=== PATIENT | female | born 1970 | race Two or more races ===

== ENCOUNTER 2016-09-13 09:39 | Emergency (ER) | payer MEDICAID ==
[~2016-09-13] VITALS: Ht 160 cm; Wt 98.4 kg
[2016-09-13] MEDS ORDERED: SODIUM CHLORIDE 0.9% 1,000 ML IV ONE (11:06)
[2016-09-13] MEDS ORDERED: FUROSEMIDE 20 MG TAB PO ONE (11:15)
[2016-09-13] MEDS ORDERED: DIAZEPAM 5 MG/ML 2ML SYRG IV ONE (11:15)
[2016-09-13] MEDS ORDERED: MECLIZINE HCL 25 MG TAB PO ONE (11:15)
[2016-09-13 11:41] LABS: Basophils # (auto) 0 uL; Basophils % (auto) 0.4 % (0.0-2.0); Eosinophils # (auto) 0.1 uL; Eosinophils % (auto) 1.1 % (0.0-7.0); Hematocrit 43.4 % (36.0-46.0); Hemoglobin 14.2 g/dL (12.2-16.2); Lymphocytes # (auto) 1.4 uL; Lymphocytes % (auto) 22.1 % (10.0-50.0); Mean Corpuscular Hemoglobin 27.8 pg (28.0-32.0); Mean Corpuscular Hgb Conc. 32.7 g/dL (32.0-36.0); Mean Corpuscular Volume 84.9 fL (80.0-100.0); Mean Platelet Volume 7.9 fL (7.4-10.4); Monocytes # (auto) 0.3 uL; Monocytes % (auto) 4.2 % (0.0-12.0); Neutrophils # (auto) 4.4 uL; Neutrophils % (auto) 72.2 % (37.0-80.0); Platelet Count (auto) 267 10^3/uL (140-450); Red Cell Distribution Width 13.4 % (11.6-16.0); White Blood Cell 6.1 10^3/uL (4.4-10.8)
[2016-09-13 12:04] LABS: BUN/Creatinine Ratio 14.9; Calcium 9.1 mg/dL (8.5-10.1); Magnesium 2.6 mg/dL (1.6-2.6); Potassium 3.9 mmol/L (3.5-5.1)
[2016-09-13 13:45] LABS: Urine Bilirubin Negative (Negative); Urine Blood Negative /uL (Negative); Urine Color Colorless (Yellow); Urine Glucose Normal (Normal); Urine Ketone Negative (Negative); Urine Nitrite Negative (Negative); Urine RBC 1 /hpf (0 - 4); Urine Squamous Epithelial Cell FEW /hpf (<5); Urine Urobilinogen Normal (Negative)
[2016-09-13 14:52] VITALS: BP 118/78
== END 2016-09-13 15:45 | disposition home or self-care (01) ==
LOC: ER 09:39
DX: R42 Dizziness and giddiness (principal); H61.23 Impacted cerumen, bilateral; J45.909 Unspecified asthma, uncomplicated; R07.9 Chest pain, unspecified
CPT/HCPCS: 36415; 71020; 80048; 81001; 83735; 85025; 93005; 96361; 96374; 99285; J3360; J7030; J8597

== ENCOUNTER 2019-05-20 22:49 | Emergency (ER) | payer MEDICAID ==
[~2019-05-20] VITALS: Ht 160 cm; Wt 99.8 kg
[2019-05-20 23:09] VITALS: BP 143/86
[2019-05-21] MEDS ORDERED: methylPREDNISolone SOD SUCC 125 MG/2 ML VL IM ONE (00:15)
[2019-05-21] MEDS ORDERED: IPRATROPIUM BROM 0.5 MG/2.5ML INH SOL NEB ONE (00:15)
[2019-05-21] MEDS ORDERED: ALBUTEROL SULF 2.5 MG/0.5ML(0.5%) NEB SOLN NEB ONE (00:15)
== END 2019-05-21 00:52 | disposition home or self-care (01) ==
LOC: ER 22:53
DX: J45.901 Unspecified asthma with (acute) exacerbation (principal); T78.40XA Allergy, unspecified, initial encounter; L29.9 Pruritus, unspecified; I10 Essential (primary) hypertension; Z90.49 Acquired absence of other specified parts of digestive tract; Z90.710 Acquired absence of both cervix and uterus; Z87.442 Personal history of urinary calculi; X58.XXXA Exposure to other specified factors, initial encounter
CPT/HCPCS: 94640; 96372; 99283; J2930; J7611; J7644

== ENCOUNTER 2019-07-30 02:40 | Emergency (ER) | payer MEDICAID ==
[~2019-07-30] VITALS: Ht 160 cm; Wt 113.4 kg
[2019-07-30 02:56] VITALS: BP 140/84
[2019-07-30] MEDS ORDERED: ACETAMINOPHEN/CODEINE#3 (300/30mg) TAB PO ONE (04:00)
== END 2019-07-30 04:52 | disposition home or self-care (01) ==
LOC: ER 02:47
DX: G56.03 Carpal tunnel syndrome, bilateral upper limbs (principal); J45.909 Unspecified asthma, uncomplicated; I10 Essential (primary) hypertension; Z90.49 Acquired absence of other specified parts of digestive tract; Z90.710 Acquired absence of both cervix and uterus; Z87.442 Personal history of urinary calculi

== ENCOUNTER 2020-02-12 16:47 | Emergency (ER) | payer MEDICAID ==
[~2020-02-12] VITALS: Ht 160 cm; Wt 99.8 kg
[2020-02-12 17:45] LABS: Basophils # (auto) 0 10 ^3/uL (0-0.2); Basophils % (auto) 0.7 % (0.0-2.0); Eosinophils # (auto) 0.2 10 ^3/uL (0-0.8); Eosinophils % (auto) 2.3 % (0.0-7.0); Hematocrit 42.6 % (36.0-46.0); Hemoglobin 14.6 g/dL (12.2-16.2); Lymphocytes # (auto) 2.3 10 ^3/uL (0.4-5.4); Lymphocytes % (auto) 30.6 % (10.0-50.0); Mean Corpuscular Hemoglobin 29.1 pg (28.0-32.0); Mean Corpuscular Hgb Conc. 34.2 g/dL (32.0-36.0); Mean Corpuscular Volume 84.9 fL (80.0-100.0); Monocytes # (auto) 0.6 10 ^3/uL (0-1.3); Monocytes % (auto) 7.9 % (0.0-12.0); Neutrophils # (auto) 4.3 10 ^3/uL (1.6-8.6); Neutrophils % (auto) 58.5 % (37.0-80.0); Nucleated Red Blood Cells % 0.4 %; Platelet Count (auto) 311 10^3/uL (140-450); Red Blood Cells 5.02 10^6/uL (4.0-5.20); Red Cell Distribution Width 13.3 % (11.8-14.3); White Blood Cell 7.4 10^3/uL (4.4-10.8)
[2020-02-12 17:50] LABS: Alanine Aminotransferase 46 U/L (13-56); Albumin 3.7 g/dL (3.4-5.0); Anion Gap 6 (5-15); Aspartate Aminotransferase 29 U/L (15-37); BUN/Creatinine Ratio 16.1; Blood Urea Nitrogen 20 mg/dL (7-18); Calcium 8.9 mg/dL (8.5-10.1); Carbon Dioxide 28 mmol/L (21-32); Chloride 104 mmol/L (98-107); GFR African American 59 mL/min; GFR Non-African American 49 mL/min; Glucose 107 mg/dL (74-106); Magnesium 2.4 mg/dL (1.6-2.6); Potassium 3.8 mmol/L (3.5-5.1); Sodium 138 mmol/L (136-145)
[2020-02-12 17:55] LABS: Alkaline Phosphatase 90 U/L (45-117); Bilirubin, Total 0.3 mg/dL (0.2-1.0); Total Protein 8.2 g/dL (6.4-8.2)
[2020-02-12] MEDS ORDERED: ASPirin 325 MG TAB PO ONE (21:45)
[2020-02-12 22:32] LABS: Urine Bacteria FEW /hpf (None Seen); Urine Blood 1+ /uL (Negative); Urine Mucus FEW (None Seen); Urine Specific Gravity 1.033 (1.001-1.035); Urine WBC 3 /hpf (0 - 5)
[2020-02-12 22:41] LABS: Alcohol, Urine < 3.0 mg/dL (0-10); Amphetamine Screen, Urine NEGATIVE (NEGATIVE); Barbiturate Scree,Urine NEGATIVE (NEGATIVE); Benzodiazephine Screen, Urine NEGATIVE (NEGATIVE); Cannabinoid Screen, Urine NEGATIVE (NEGATIVE); Cocaine Screen, Urine NEGATIVE (NEGATIVE); Opiate Scree,Urine NEGATIVE (NEGATIVE); Phencyclidine Screen, Urine NEGATIVE (NEGATIVE)
[2020-02-12 23:47] VITALS: BP 151/79
[2020-02-13] MEDS ORDERED: FAMOTIDINE 20 MG TAB PO ONE (00:15)
[2020-02-13] MEDS ORDERED: hydrOXYzine 25 MG TAB or CAP PO ONE (00:15)
== END 2020-02-13 02:05 | disposition home or self-care (01) ==
LOC: ER 16:47
DX: F41.9 Anxiety disorder, unspecified (principal); K29.70 Gastritis, unspecified, without bleeding; R07.89 Other chest pain; M79.602 Pain in left arm; J45.909 Unspecified asthma, uncomplicated; Z90.49 Acquired absence of other specified parts of digestive tract; Z90.710 Acquired absence of both cervix and uterus
CPT/HCPCS: 36415; 71046; 80053; 80307; 81001; 83735; 84443; 84484; 85025; 93005

== ENCOUNTER 2021-02-20 13:09 | Emergency (ER) | payer MEDICAID ==
[~2021-02-20] VITALS: Ht 160 cm; Wt 93.0 kg
[2021-02-20 14:35] LABS: Alanine Aminotransferase 24 U/L (13-56); Albumin 3.6 g/dL (3.4-5.0); Anion Gap 6 (5-15); Aspartate Aminotransferase 15 U/L (15-37); BUN/Creatinine Ratio 13.5; Blood Urea Nitrogen 15 mg/dL (7-18); Calcium 8.1 mg/dL (8.5-10.1); Carbon Dioxide 29 mmol/L (21-32); Chloride 105 mmol/L (98-107); GFR African American 67 mL/min; GFR Non-African American 55 mL/min; Glucose 111 mg/dL (74-106); Magnesium 2.2 mg/dL (1.6-2.6); Potassium 3.5 mmol/L (3.5-5.1); Sodium 140 mmol/L (136-145)
[2021-02-20 14:39] LABS: Alkaline Phosphatase 81 U/L (45-117); Bilirubin, Total 0.3 mg/dL (0.2-1.0); Total Protein 7.4 g/dL (6.4-8.2)
[2021-02-20 14:47] LABS: Basophils # (auto) 0 10 ^3/uL (0-0.2); Basophils % (auto) 0.5 % (0.0-2.0); Eosinophils # (auto) 0.1 10 ^3/uL (0-0.8); Eosinophils % (auto) 1.1 % (0.0-7.0); Hemoglobin 14.2 g/dL (12.2-16.2); Lymphocytes # (auto) 1.8 10 ^3/uL (0.4-5.4); Lymphocytes % (auto) 24.9 % (10.0-50.0); Mean Corpuscular Hemoglobin 29.2 pg (28.0-32.0); Mean Corpuscular Hgb Conc. 34.7 g/dL (32.0-36.0); Mean Corpuscular Volume 84.2 fL (80.0-100.0); Monocytes # (auto) 0.4 10 ^3/uL (0-1.3); Neutrophils # (auto) 5.1 10 ^3/uL (1.6-8.6); Neutrophils % (auto) 68.5 % (37.0-80.0); Nucleated Red Blood Cells % 0.3 %; Red Blood Cells 4.87 10^6/uL (4.0-5.20); Red Cell Distribution Width 13.3 % (11.8-14.3); White Blood Cell 7.4 10^3/uL (4.4-10.8)
[2021-02-20 15:25] VITALS: BP 141/83
== END 2021-02-20 15:47 | disposition home or self-care (01) ==
LOC: ER 13:09
DX: R42 Dizziness and giddiness (principal); R06.02 Shortness of breath; R20.2 Paresthesia of skin; J45.909 Unspecified asthma, uncomplicated; Z90.49 Acquired absence of other specified parts of digestive tract; Z90.710 Acquired absence of both cervix and uterus
CPT/HCPCS: 36415; 71045; 80053; 83735; 84484; 85025; 85379; 93005; 93971

== ENCOUNTER 2023-02-18 08:12 | Emergency (ER) | payer MEDICAID ==
[~2023-02-18] VITALS: Ht 160 cm; Wt 93.9 kg
[2023-02-18 08:50] VITALS: BP 138/83; PULSE 75; RESP 18; TEMP 97.3; O2SAT 96
[2023-02-18] MEDS ORDERED: CETI10CA PO (09:04)
[2023-02-18] MEDS ORDERED: ERY05OO OP (09:04)
== END 2023-02-18 09:22 | disposition home or self-care (01) ==
LOC: ER 08:12
DX: H10.33 Unspecified acute conjunctivitis, bilateral (principal)

== ENCOUNTER 2024-03-16 10:46 | Inpatient (IN) | payer MEDICAID ==
[~2024-03-16] VITALS: Ht 160 cm; Wt 101.6 kg
[~2024-03-16 10:46] MED LIST: CETI10CA PO; ERY05OO OP
[2024-03-16] MEDS: ASPirin 81 mg TAB PO ONE (11:06)
[2024-03-16 11:12] LABS: Basophils # (auto) 0.1 10 ^3/uL (0-0.2); Basophils % (auto) 0.9 % (0.0-2.0); Eosinophils # (auto) 0.2 10 ^3/uL (0-0.8); Eosinophils % (auto) 2.5 % (0.0-7.0); Hematocrit 43.3 % (36.0-46.0); Lymphocytes # (auto) 2.2 10 ^3/uL (0.4-5.4); Lymphocytes % (auto) 33.8 % (10.0-50.0); Mean Corpuscular Hemoglobin 29.3 pg (28.0-32.0); Mean Corpuscular Hgb Conc. 34.6 g/dL (32.0-36.0); Mean Corpuscular Volume 84.7 fL (80.0-100.0); Monocytes # (auto) 0.5 10 ^3/uL (0-1.3); Monocytes % (auto) 7.1 % (0.0-12.0); Neutrophils # (auto) 3.7 10 ^3/uL (1.6-8.6); Neutrophils % (auto) 55.7 % (37.0-80.0); Platelet Count (auto) 258 10^3/uL (140-450); Red Blood Cells 5.11 10^6/uL (4.0-5.20); Red Cell Distribution Width 13.1 % (11.8-14.3); White Blood Cell 6.5 10^3/uL (4.4-10.8)
[2024-03-16 11:31] LABS: Alanine Aminotransferase 25 U/L (7-40); Albumin 4.6 g/dL (3.2-4.8); Alkaline Phosphatase 90 U/L (46-116); Anion Gap 4 (5-15); Aspartate Aminotransferase 19 U/L (13-40); BUN/Creatinine Ratio 11.3 (10.0-20.0); Bilirubin, Total 0.5 mg/dL (0.2-1.0); Blood Urea Nitrogen 11 mg/dL (9-23); Calcium 9.7 mg/dL (8.7-10.4); Carbon Dioxide 29 mmol/L (20-30); Chloride 105 mmol/L (98-107); Glucose 101 mg/dL (74-106); Potassium 3.9 mmol/L (3.5-5.1); Sodium 138 mmol/L (136-145); Total Protein 7.6 g/dL (5.7-8.2)
[2024-03-16 14:32] VITALS: PULSE 80; RESP 16; O2SAT 97
[2024-03-16] MEDS ORDERED: NITROGLYCERIN 0.4 MG SL TAB SL PRN (15:00)
[2024-03-16] MEDS ORDERED: MORPHINE SULFATE INJ 2 MG/ml SYRG IV PRN (15:00)
[2024-03-16] MEDS ORDERED: ACETAMINOPHEN 325 MG TAB PO PRN (15:00)
[2024-03-16 15:37] LABS: Triglycerides 262 mg/dL (< 150)
[2024-03-16 15:38] LABS: LDL Cholesterol 112 mg/dL (< 100)
[2024-03-16 15:39] LABS: Cholesterol 198 mg/dL (< 200); HDL Cholesterol 45 mg/dL (40-59)
[2024-03-16] MEDS ORDERED: MECLIZINE HCL 25 MG TAB PO PRN (16:45)
[2024-03-16] MEDS: MECLIZINE HCL 25 MG TAB PO ONE (17:03)
[2024-03-16 22:38] VITALS: PULSE 52; RESP 18; O2SAT 96
[2024-03-17] MEDS ORDERED: NAPR220C PO (00:34)
[2024-03-17] MEDS ORDERED: ESCI10TA PO (00:34)
[2024-03-17 01:00] VITALS: BP 142/70; PULSE 51; RESP 17; TEMP 97.7; O2SAT 93
[2024-03-17 05:00] VITALS: BP 148/85; PULSE 63; RESP 18; TEMP 98; O2SAT 97
[2024-03-17 05:51] LABS: Basophils # (auto) 0.1 10 ^3/uL (0-0.2); Basophils % (auto) 0.7 % (0.0-2.0); Eosinophils # (auto) 0.2 10 ^3/uL (0-0.8); Eosinophils % (auto) 3.5 % (0.0-7.0); Hematocrit 41.4 % (36.0-46.0); Hemoglobin 14.5 g/dL (12.2-16.2); Lymphocytes % (auto) 27.9 % (10.0-50.0); Mean Corpuscular Hemoglobin 29.4 pg (28.0-32.0); Mean Corpuscular Hgb Conc. 34.9 g/dL (32.0-36.0); Mean Corpuscular Volume 84.3 fL (80.0-100.0); Monocytes # (auto) 0.5 10 ^3/uL (0-1.3); Monocytes % (auto) 7.2 % (0.0-12.0); Neutrophils # (auto) 4.2 10 ^3/uL (1.6-8.6); Neutrophils % (auto) 60.7 % (37.0-80.0); Nucleated Red Blood Cells % 0.3 %; Platelet Count (auto) 239 10^3/uL (140-450); Red Blood Cells 4.91 10^6/uL (4.0-5.20); Red Cell Distribution Width 13.2 % (11.8-14.3)
[2024-03-17 05:52] LABS: Alanine Aminotransferase 24 U/L (7-40); Albumin 4.1 g/dL (3.2-4.8); Alkaline Phosphatase 80 U/L (46-116); Anion Gap 4 (5-15); Aspartate Aminotransferase 16 U/L (13-40); BUN/Creatinine Ratio 15.9 (10.0-20.0); Bilirubin, Total 0.5 mg/dL (0.2-1.0); Blood Urea Nitrogen 17 mg/dL (9-23); Calcium 9.5 mg/dL (8.7-10.4); Carbon Dioxide 30 mmol/L (20-30); Chloride 106 mmol/L (98-107); Glucose 100 mg/dL (74-106); Potassium 4.3 mmol/L (3.5-5.1); Sodium 140 mmol/L (136-145); Total Protein 6.9 g/dL (5.7-8.2)
[2024-03-17 08:00] VITALS: PULSE 53; PULSE 59; RESP 17; O2SAT 95
[2024-03-17 08:27] LABS: Hepatitis B Surface Antigen Negative (Negative)
[2024-03-17 08:49] VITALS: BP 138/75; PULSE 59; RESP 17; TEMP 98; O2SAT 95
[2024-03-17 08:49] LABS: Hepatitis C Antibody Negative (Negative)
[2024-03-17] MEDS: KETOROLAC TROMETH 30 MG/ML 1ML VIAL IV ONE (10:00)
[2024-03-17] MEDS ORDERED: ENOXAPARIN SOD 40 MG/0.4 ML SYRINGE SC SCH (10:00)
[2024-03-17] MEDS: PANTOPRAZOLE 40 MG TAB PO ONE (10:00)
[2024-03-17] MEDS: ASPirin 81 mg TAB PO SCH (10:04)
[2024-03-17] MEDS: LOSARTAN POTASSIUM 50 MG TAB PO SCH (10:05)
[2024-03-17] MEDS ORDERED: HYDR25TA5 PO (12:46)
[2024-03-17] MEDS ORDERED: LOSA-534 PO (12:46)
[2024-03-17 13:37] LABS: Urine Bacteria FEW /hpf (None Seen); Urine Blood 1+ /uL (Negative); Urine Clarity Clear (Clear); Urine Protein, UAD Negative (Negative); Urine Specific Gravity 1.008 (1.001-1.035); Urine Urobilinogen Normal (Negative); Urine WBC <1 /hpf (0 - 5)
[2024-03-17 13:41] LABS: Amphetamine Screen, Urine Neg (NEGATIVE); Barbiturate Scree,Urine Neg (NEGATIVE); Benzodiazephine Screen, Urine Neg (NEGATIVE); Cocaine Screen, Urine Neg (NEGATIVE)
[2024-03-17 13:42] LABS: Cannabinoid Screen, Urine Neg (NEGATIVE); Opiate Scree,Urine Neg (NEGATIVE); Phencyclidine Screen, Urine Neg (NEGATIVE)
[2024-03-17 13:43] VITALS: BP 129/72; PULSE 65; RESP 17; TEMP 98.1; O2SAT 95
[2024-03-17 13:47] LABS: Urine Color Light-Yellow (Yellow)
[2024-03-17] MEDS ORDERED: ATORVASTATIN 20 MG TAB PO SCH (22:00)
[2024-03-18] MEDS ORDERED: PANTOPRAZOLE 40 MG TAB PO SCH (06:00)
== END 2024-03-17 15:00 | disposition home or self-care (01) | DRG 203 ==
LOC: ER 10:46 → TELE 14:54 → TELE-CENTR 22:38 → CENTRAL 03-17 11:11
PROVIDERS: ADMIT Internal Medicine; ATTEND Internal Medicine
DX: M94.0 Chondrocostal junction syndrome [Tietze] (principal); E66.01 Morbid (severe) obesity due to excess calories; E78.00 Pure hypercholesterolemia, unspecified; J45.909 Unspecified asthma, uncomplicated; I10 Essential (primary) hypertension; F41.9 Anxiety disorder, unspecified; Z90.710 Acquired absence of both cervix and uterus; Z90.49 Acquired absence of other specified parts of digestive tract; Z87.442 Personal history of urinary calculi; Z68.39 Body mass index [BMI] 39.0-39.9, adult
CPT/HCPCS: 36415; 71046; 80053; 80061; 80307; 81001; 83036; 84443; 84484; 85025; 85379; 86803; 87340; 93005; 93306; G0378

== ENCOUNTER 2024-12-25 15:23 | Emergency (ER) | payer MEDICAID ==
[~2024-12-25] VITALS: Ht 160 cm; Wt 99.6 kg
[~2024-12-25 15:23] MED LIST changes: -CETI10CA PO; -ERY05OO OP; +ESCI10TA PO; +HYDR25TA5 PO; +LOSA-534 PO; +NAPR220C PO
[2024-12-25 16:19] VITALS: BP 140/86; PULSE 76; RESP 14; TEMP 98; O2SAT 98
--- NOTE | 2024-12-25 16:21 | ED.PDOC ---
HPI Allergic reaction HPI Comments A 54 YEAR OLD FEMALE PRESENTS TO THE ED WITH CHIEF COMPLAINT OF ALLERGIC REACTION. PATIENT REPORTS THAT SHE HAS BEEN EXPERIENCING ALLERGIES WITH ASSOCIATED WATERY EYES, RUNNY NOSE, ITCHY THROAT, AND CHEST/NECK RASH FOR THE PAST MONTH. PATIENT RELAYS THAT SHE HAS FOUND NO RELIEF WITH OTC ALLERGY MEDICATION AND MEDICATION HER PCP PRESCRIBED. PATIENT NOTES DIFFICULTY BREATHING IN THE NIGHT. PATIENT DENIES ANY COUGH, HEADACHE, THROAT SWELLING, CHEST PAIN, OR DIZZINESS. NO FURTHER COMPLAINTS OR SYMPTOMS. Chief Complaint: Allergic Reaction Time Seen by MD: 16:05 Primary Care Provider: ISAIAH Reviewed Notes: Nurses Notes, Medications, Allergies Allergies: Coded Allergies: NO KNOWN ALLERGIES (Unverified , 02/09/18) Home Meds Active Scripts Triamcinolone Acetonide (Triamcinolone Acetonide) 0.1 % Oin, 1 APPLIC TOP BID, #80 GRAMS Prov:ROXANE VILLANUEVA 12/25/24 Methylprednisolone (Medrol Dosepak) 4 Mg Rajesh, 4 MG PO UD, #21 TAB UAD Prov:ROXANE VILLANUEVA 12/25/24 Hydroxyzine Pamoate (Vistaril) 25 Mg Cap, 1 CAP PO TID, #90 CAP 1 Refill Prov:ROXANE VILLANUEVA 12/25/24 Hctz (Hydrochlorothiazide) 25 Mg Tab, 25 MG PO QAM for 30 Days, #30 TAB 3 Refills Prov:ELIZABETH SANDOVAL MD 03/17/24 Losartan Potassium (Losartan Potassium) 50 Mg Tab, 50 MG PO DAILY for 30 Days, #30 TAB 3 Refills Prov:ELIZABETH SANDOVAL MD 03/17/24 Reported Medications Naproxen Sodium (Aleve) 220 Mg Cap, 220 MG PO, CAP 03/17/24 Escitalopram Oxalate (Lexapro) 10 Mg Tab, 1 TAB PO DAILY, #90 TAB 3 Refills 03/17/24 Information Source: Patient Mode of Arrival: Ambulatory Severity: Mild, Moderate Rash: Mild, Moderate SOB: None Difficulty swallowing: None Pruritus: Moderate Timing: Months Duration: Since onset, Intermittent, Days Prehospital treatment: None Location: Chest, Face, Neck Exposed to: Unknown Developed: Pruritus, Rash History of: Prior Similar Episodes Modyifying Factors: Not Used Associated Sign and Symptoms: None Past Medical History PAST MEDICAL HISTORY: Asthma, HTN, Kidney Stones Surgical History: Appendectomy, Cholecystectomy, , Hysterectomy 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 Pertinent CROCODILE FARMER History Family History Family History: Reviewed,noncontributory to illness, No family hx of Cancer, No family hx of DM, No family hx of Heart lashonda, No family hx of HTN, No family hx ofKidney lashonda, No family hx of Liver lashonda, No family hx of Lung lashonda, No family hx of Stroke Social History Smoker: Non-Smoker Alcohol: Denies ETOH Use Drugs: Denies Drug Use Lives In: Home Constitutional: denies: chills, diaphoresis, fatigue, fever, malaise, sweats, weakness, others EENTM: reports: nasal discharge, throat pain, others (WATERY EYES); denies: blurred vision, double vision, ear bleeding, ear discharge, ear drainage, ear pain, ear ringing, eye pain, eye redness, hearing loss, mouth pain, mouth swelling, nose bleeding, nose congestion, nose pain, photophobia, tearing, throat swelling, voice changes Respiratory: reports: shortness of breath (DUE TO ASTHMA ); denies: cough, hemoptysis, orthopnea, SOB at rest, SOB with excertion, stridor, wheezing, others Cardiovascular: denies: chest pain, dizzy spells, diaphoresis, Dyspnea on exertion, edema, irregular heart beat, left arm pain, lightheadedness, palpitations, PND, syncope, others Gastrointestinal: denies: abdomen distended, abdominal pain, blood streaked bowels, constipated, diarrhea, dysphagia, difficulty swallowing, hematemesis, melena, nausea, poor appetite, poor fluid intake, rectal bleeding, rectal pain, vomiting, others Genitourinary: denies: abnormal vagina bleeding, burning, dyspareunia, dysuria, flank pain, frequency, hematuria, incontinence, pain, , vagina disc harge, urgency, others Neurological: denies: dizziness, fainting, headache, left sided numbness, left sided weakness, numbness, paresthesia, pre-existing deficit, right sided numbness, right sided weakness, seizure, speech problems, tingling, tremors, weakness, others Musculoskeletal: denies: back pain, gout, joint pain, joint swelling, muscle pain, muscle stiffness, neck pain, others Integumetry: reports: rash; denies: bruises, change in color, change in hair/nails, dryness, laceration, lesions, lumps, wounds, others Allergic/Immunocompromised: reports: Hives, Itching; denies: Difficulty Healing, Frequent Infections, others Hematologic/Lymphatic: denies: anemia, blood clots, easy bleeding, easy bruising, swollen glands, others Endocrine: denies: excessive hunger, excessive sweating, excessive thirst, excessive urination, flushing, intolerance to cold, intolerance to heat, unexplained weight gain, unexplained weight loss, others Psychiatric: denies: anxiety, bipolar disorder, depression, hopeless, panic disorder, schizophrenia, sleepless, suicidal, others All Other Systems: Reviewed and Negative Physical Exam General Appearance: No Apparent Distress, Obese HEENT: Normal ENT Inspection, PERRL/EOMI, Pharynx Normal, TMs Normal Neck: Full Range of Motion, Non-Tender, Normal, Normal Inspection Respiratory: Chest Non-Tender, Lungs Clear, No Accessory Muscle Use, No Respiratory Distress, Normal Breath Sounds Cardiovascular: No Edema, No JVD, No Murmur, No Gallop, Normal Peripheral Pulses, Regular Rate/Rhythm Breast Exam: Deferred Gastrointestinal: No Organomegaly, Non Tender, No Pulsatile Mass, Normal Bowel Sounds, Soft Genitalia: Deferred Pelvic: Deferred Rectal: Deferred Extremities: No calf tenderness, Normal capillary refill, Normal inspection, Normal range of motion, Non-tender, No pedal edema Musculoskeletal : Apperance: Normal Neurologic: Alert, communication skills instructor II-XII nml as Tested, No Motor Deficits, Normal Affect, Normal Mood, No Sensory Deficits Cerebellar Function: Normal Reflexes: Normal Skin: Dry, Normal Color, Rash (ECZEMATOUS SKIN RASH ON FACE, ANTERIOR NECK, UPPER CHEST AND ARMS, NO TENDERNESS, SWELLING AND OPEN WOUNDS. ), Warm Peripheral Pulses: 2+ carotid (R), 2+ carotid (L) Lymphatic: No Adenopathy Was a procedure done? Was a procedure done?: No Differential diagnosis (all) Differential Diagnosis: Bronchospasm, Urticaria, Other (ATOPIC DERMATITIS ) X-Ray, Labs, Meds, VS Vital Signs Date Time Temp Pulse Resp B/P (MAP) Pulse Ox O2 Delivery O2 Flow Rate FiO2 12/25/24 16:19 76 14 98 Room Air 12/25/24 16:19 98.0 76 14 140/86 (104) 98 98.0 12/25/24 15:30 97.7 78 13 147/85 (105) 97 97.7 Current Medications Medications (Trade) Dose Ordered Sig/Robert Route Start Time Stop Time Status Last Admin Methylprednisolone Sodium Succinate (Solu Medrol) 125 mg ONCE ONCE IM 12/25/24 16:30 12/25/24 16:31 DC 12/25/24 16:26 X-Ray, Labs, Meds, VS Comment EXTERNAL MEDICAL RECORDS REVIEWED: [NONE] INDEPENDENT HISTORIANS: [NONE] SOCIAL DETERMINANTS OF HEALTH: [NONE] LABS ORDERED: NONE REVIEWED AND INTERPRETED RESULTS: NONE IMAGING ORDERED: NONE TREATMENTS ORDERED: SOLU-MEDROL 125MG IM PROCEDURES PERFORMED: NONE CRITICAL CARE TIME: NONE I HAVE DISCUSSED THE PATIENT WITH THE ATTENDING PHYSICIAN DR. LOPEZ AND HE AGREES WITH THE PATIENT'S PLAN OF CARE AND DISPOSITION. BASED ON HISTORY OF PRESENT ILLNESS, AND PHYSICAL EXAM, PATIENT WILL BE DISCHARGED HOME. DISCUSSED PLAN FOR DISCHARGE HOME WITH RX MEDROL DOSE PACK, HYDROCORTISONE, AND VISTARIL. MEDICATION WARNINGS GIVEN. SHARED DECISION MAKING: DISCUSSED WITH PATIENT THAT THEIR WORKUP WAS NORMAL. PATIENT INSTRUCTED TO FOLLOW UP WITH PRIMARY CARE PROVIDER IN 1-2 DAYS FOR RE- EVALUATION OF SYMPTOMS. PATIENT VERBALIZES UNDERSTANDING TO RETURN TO ED FOR NEW OR WORSENING SYMPTOMS OR IF FOLLOW UP WITH PCP CANNOT BE OBTAINED. PATIENT FEELS COMFORTABLE GOING HOME AT THIS TIME. ALL QUESTIONS ADDRESSED AT TIME OF DISCHARGE. Time of 1ST Reevaluation: 16:35 Reevaluation 1ST: Improved Patient Education/Counseling: Diagnosis, Treatment, Need For Follow Up Family Education/Counseling: Diagnosis, Treatment, Need For Follow Up Medical Screening: No EMC Exist At This Time Departure 1 Departure Time of Disposition: 17:00 Impression: Primary Impression: Atopic dermatitis Qualified Codes: L20.9 - Atopic dermatitis, unspecified Disposition: HOME / SELF CARE / HOMELESS Condition: Stable Additional Instructions: FOLLOW-UP WITH PCP IN 1 TO 2 DAYS. TAKE MEDICATIONS PRESCRIBED. RETURN TO ED FOR ANY NEW OR WORSENING SYMPTOMS. e-Prescriptions Triamcinolone Acetonide (Triamcinolone Acetonide) 0.1 % Oin 1 APPLIC TOP BID, #80 GRAMS Prov: ROXANE VILLANUEVA 12/25/24 Methylprednisolone (Medrol Dosepak) 4 Mg Rajesh 4 MG PO UD, #21 TAB UAD Prov: ROXANE VILLANUEVA 5/22/25 Hydroxyzine Pamoate (Vistaril) 25 Mg Cap 1 CAP PO TID, #90 CAP 1 Refill Prov: ROXANE VILLANUEVA 12/25/24 Discharged With: Self Critical Care Note Critical Care Time?: No Stability Stability form required: No Heart Score Heart Score: Heart Score Response (Comments) Value History N/A 0 EKG N/A 0 Age N/A 0 Risk Factors N/A 0 Troponin N/A 0 Total 0 I personally scribed for ROXANE VILLANUEVA ([email or web address]) on 12/25/24 at 16:21. Electronically submitted by Trav Graves ([email or web address]). ROXANE VILLANUEVA December 25, 2024 16:21
[2024-12-25] MEDS: methylPREDNISolone SOD SUCC 125 MG/2 ML VL IM ONE (16:26)
[2024-12-25] MEDS ORDERED: TRIA0.1O TOP (16:47)
[2024-12-25] MEDS ORDERED: METH4PAK PO (16:47)
[2024-12-25] MEDS ORDERED: HYDR25CA PO (16:47)
== END 2024-12-25 17:18 | disposition home or self-care (01) ==
LOC: ER 15:23
DX: L20.9 Atopic dermatitis, unspecified (principal); I10 Essential (primary) hypertension; J45.909 Unspecified asthma, uncomplicated; Z79.899 Other long term (current) drug therapy; Z90.49 Acquired absence of other specified parts of digestive tract; Z90.710 Acquired absence of both cervix and uterus; Z87.442 Personal history of urinary calculi
CPT/HCPCS: 96372; 99283; J2919